=== PATIENT | female | born 1995 | race Hispanic/Latino ===

== ENCOUNTER 2021-04-11 08:54 | Emergency (ER) | payer BC, MEDICAID, OTHER | END 2021-04-11 09:55 | disposition home or self-care (01) | LOC: ERS 08:54 | DX: L03.011 Cellulitis of right finger (principal); F17.210 Nicotine dependence, cigarettes, uncomplicated | CPT/HCPCS: 99283 ==

== ENCOUNTER 2021-04-12 01:04 | Inpatient (IN) | payer MEDICAID, OTHER ==
[2021-04-12] MEDS ORDERED: Vancomycin 1 GM/200 ML BAG ONE (01:38)
[2021-04-12 01:59] LABS: #Basophils 0.1 thou/uL (0.0-0.2); #Eosinphils 0.1 thou/uL (0.0-0.7); #Monocytes 0.5 thou/uL (0.11-0.59); #Neutrophils 16.5 thou/uL (1.40-6.50); %Basophils 0.3 % (0.0-1.0); %Eosinophils 0.4 % (0.0-10.0); %Lymphocytes 10.2 % (21.0-51.0); %Monocytes 2.8 % (0.0-10.0); %Neutrophils 86.3 % (42.0-75.0); Hemoglobin 12.7 g/dL (12.0-16.0); Mean Corpuscular HGB CONC 34.6 g/dL (32.0-36.0); Mean Corpuscular Hemoglobin 32.6 pg (27.0-31.0); Mean Corpuscular Volume 94.1 fL (78.0-98.0); Mean Platelet Volume 7.1 fL (7.4-10.4); Platelet Count 282 thou/uL (130-400); RBC Distribution Width 11.8 % (11.5-14.5); White Blood Cell (WBC) Count 19.1 thou/uL (4.8-10.8)
[2021-04-12 02:21] LABS: ALT (SGPT) 11 U/L (8-55); AST (SGOT) 16 U/L (5-34); Alkaline Phosphatase 78 U/L (40-110); Anion Gap 13 mmol/L (10-20); BUN (Urea Nitrogen) 9 mg/dL (7.0-18.7); Bilirubin, Total 0.3 mg/dL (0.2-1.2); Calc. Creatinine Clearance 0 mL/min (70-130); Calcium 9.1 mg/dL (7.8-10.44); Carbon Dioxide 21 mmol/L (22-29); Chloride 105 mmol/L (98-107); Globulin 3.1 g/dL (2.4-3.5); Glucose 92 mg/dL (70-105); Potassium 3.5 mmol/L (3.5-5.1); Protein, Total 7.1 g/dL (6.0-8.3); Sodium 135 mmol/L (136-145)
[2021-04-12] MEDS ORDERED: Morphine 4 MG/ML VIAL ONE (02:50)
[2021-04-12] MEDS ORDERED: Clindamycin/D5W 600 mg/50 ml Premix Bag ONE (02:51)
[2021-04-12 04:42] VITALS: BMI 28.3
[2021-04-12] MEDS ORDERED: Ondansetron ODT 4 MG TAB SL PRN (04:45)
[2021-04-12] MEDS ORDERED: Ondansetron PF 4 MG/2 ML Vial IVP PRN (04:45)
[2021-04-12] MEDS ORDERED: Acetaminophen 325 MG TAB PO PRN (04:45)
[2021-04-12] MEDS: Sodium Chloride 0.9% 1,000 ML IV SCH ×2 (05:08→12:48)
[2021-04-12] MEDS ORDERED: Morphine 4 MG/ML VIAL SLOW IVP SCH (05:15)
[2021-04-12 07:58] LABS: SARS-CoV-2 NAA Rapid Test Not Detected (NotDetected)
[2021-04-12] MEDS ORDERED: Piperacillin/Tazobactam 3.375 GM in Sodium Chloride 0.9% 100 ML IVPB SCH (08:00)
[2021-04-12] MEDS: Morphine 4 MG/ML VIAL SLOW IVP PRN ×4 (09:05→22:02)
[2021-04-12] MEDS: Enoxaparin Sodium 40 MG/0.4 ML SYRINGE SC SCH ×2 (09:05→10:23)
[2021-04-12] MEDS: Vancomycin HCl 1.5 GM in Sodium Chloride 0.9% 250 ML 300 ML IVPB SCH ×2 (10:21→18:41)
[2021-04-12] MEDS: Piperacillin/Tazobactam 3.375 GM in Sodium Chloride 0.9% 100 ML IVPB SCH ×2 (12:05→22:01)
[2021-04-12] MEDS ORDERED: Ketorolac Tromethamine 30 MG/ML VIAL ONE (13:03)
[2021-04-12] MEDS: Ketorolac Tromethamine 30 MG/ML VIAL IVP PRN (20:08)
[2021-04-13] MEDS: Vancomycin HCl 1.5 GM in Sodium Chloride 0.9% 250 ML 300 ML IVPB SCH ×3 (02:18→18:40)
[2021-04-13] MEDS: Morphine 4 MG/ML VIAL SLOW IVP PRN ×4 (02:20→20:56)
[2021-04-13] MEDS: Piperacillin/Tazobactam 3.375 GM in Sodium Chloride 0.9% 100 ML IVPB SCH ×3 (04:59→20:59)
[2021-04-13 06:58] LABS: #Eosinphils 0.2 thou/uL (0.0-0.7); #Lymphocytes 2.7 thou/uL (1.20-3.40); #Monocytes 0.4 thou/uL (0.11-0.59); #Neutrophils 8.3 thou/uL (1.40-6.50); %Basophils 0.4 % (0.0-1.0); %Eosinophils 1.8 % (0.0-10.0); %Lymphocytes 23.3 % (21.0-51.0); %Monocytes 3.6 % (0.0-10.0); %Neutrophils 70.8 % (42.0-75.0); Hemoglobin 11.3 g/dL (12.0-16.0); Mean Corpuscular HGB CONC 33.2 g/dL (32.0-36.0); Mean Corpuscular Hemoglobin 31.2 pg (27.0-31.0); Mean Platelet Volume 7.8 fL (7.4-10.4); Platelet Count 277 thou/uL (130-400); RBC Distribution Width 11.8 % (11.5-14.5); Red Blood Cell (RBC) Count 3.62 mill/uL (4.20-5.40); White Blood Cell (WBC) Count 11.7 thou/uL (4.8-10.8)
[2021-04-13 07:14] LABS: Anion Gap 11 mmol/L (10-20); BUN (Urea Nitrogen) 5 mg/dL (7.0-18.7); Calc. Creatinine Clearance 148 mL/min (70-130); Calcium 8.4 mg/dL (7.8-10.44); Carbon Dioxide 22 mmol/L (22-29); Chloride 105 mmol/L (98-107); Glucose 97 mg/dL (70-105); Potassium 4.1 mmol/L (3.5-5.1); Sodium 134 mmol/L (136-145)
[2021-04-13] MEDS ORDERED: Ondansetron ODT 4 MG TAB SL PRN (07:40)
[2021-04-13] MEDS ORDERED: Loperamide HCl 2 MG CAP PO PRN (07:40)
[2021-04-13] MEDS ORDERED: GUAIFENESIN SF SOLN 200 MG/10 ML UDCUP PO PRN (07:40)
[2021-04-13] MEDS ORDERED: HYDROcodone/Acetaminophen 5/325 mg Tablet PO PRN (07:40)
[2021-04-13] MEDS ORDERED: Loratadine 10 MG TAB PO PRN (07:40)
[2021-04-13] MEDS ORDERED: hydrALAZINE 20 MG/ML VIAL SLOW IVP PRN (07:40)
[2021-04-13] MEDS ORDERED: Senokot S 8.6-50 MG TAB PO PRN (07:40)
[2021-04-13] MEDS ORDERED: Cepastat Lozenges 1 LOZ PO PRN (07:40)
[2021-04-13] MEDS ORDERED: Calcium Carbonate 500 MG ChewTAB PO PRN (07:40)
[2021-04-13 09:53] LABS: Vancomycin, Trough 16.7 ug/mL
[2021-04-13] MEDS: Ketorolac Tromethamine 30 MG/ML VIAL IVP PRN ×2 (10:23→20:18)
[2021-04-13] MEDS ORDERED: Betamet Acet/Betamet Na Ph 30 MG/5 ML VIAL ONE (15:31)
[2021-04-13] MEDS ORDERED: Neomycin-Polymyxin 1 ML AMP ONE ×3 (15:31→16:47)
[2021-04-13] MEDS ORDERED: Bacitracin Zinc Ointment 30 gm TUBE ONE (15:31)
[2021-04-13] MEDS ORDERED: Bupivacaine PF 0.5% 30 ML VIAL ONE (15:31)
[2021-04-13] MEDS ORDERED: Fentanyl 100 MCG/2 ML VIAL ONE ×2 (15:46→18:09)
[2021-04-13] MEDS ORDERED: Lidocaine 1% PF 5 ML VIAL ONE (15:54)
[2021-04-13] MEDS ORDERED: Dexamethasone 20 MG/5 ML VIAL ONE (15:54)
[2021-04-13] MEDS ORDERED: Ketorolac Tromethamine 30 MG/ML VIAL ONE (15:54)
[2021-04-13] MEDS ORDERED: Ondansetron PF 4 MG/2 ML Vial ONE (15:54)
[2021-04-13] MEDS ORDERED: PROPOFOL 200 MG/20 ML VIAL ONE (15:54)
[2021-04-13] MEDS ORDERED: PHENYLEPHRINE-NS 100 MCG/ML 10 ML SYRINGE ONE (15:54)
[2021-04-13] MEDS ORDERED: Midazolam HCl 2 mg/2 ml Vial ONE (15:57)
[2021-04-13] MEDS ORDERED: Promethazine HCl 25 MG/ML VIAL IM PRN (17:32)
[2021-04-13] MEDS ORDERED: Meperidine HCl/PF 25 MG/ML VIAL SLOW IVP PRN (17:32)
[2021-04-13] MEDS ORDERED: Promethazine HCl 25 MG/ML VIAL IVPB PRN (17:32)
[2021-04-13] MEDS ORDERED: HYDROmorphone 2 MG/ML VIAL SLOW IVP PRN (17:32)
[2021-04-13] MEDS: HYDROcodone/Acetaminophen 7.5/325 mg Tablet PO PRN (20:19)
[2021-04-13] MEDS ORDERED: traMADol HCl 50 MG TAB PO SCH (23:15)
[2021-04-14] MEDS: Vancomycin HCl 1.5 GM in Sodium Chloride 0.9% 250 ML 300 ML IVPB SCH ×3 (02:36→17:44)
[2021-04-14] MEDS: HYDROcodone/Acetaminophen 7.5/325 mg Tablet PO PRN ×3 (02:36→21:07)
[2021-04-14] MEDS: Morphine 4 MG/ML VIAL SLOW IVP PRN ×3 (03:37→23:21)
[2021-04-14] MEDS: Piperacillin/Tazobactam 3.375 GM in Sodium Chloride 0.9% 100 ML IVPB SCH ×4 (05:08→23:19)
[2021-04-14 09:36] LABS: #Basophils 0.1 thou/uL (0.0-0.2); #Lymphocytes 1.3 thou/uL (1.20-3.40); #Monocytes 0.5 thou/uL (0.11-0.59); #Neutrophils 12.6 thou/uL (1.40-6.50); %Basophils 0.4 % (0.0-1.0); %Lymphocytes 8.9 % (21.0-51.0); %Monocytes 3.5 % (0.0-10.0); %Neutrophils 87.2 % (42.0-75.0); Hemoglobin 11.5 g/dL (12.0-16.0); Mean Corpuscular HGB CONC 33.1 g/dL (32.0-36.0); Mean Corpuscular Volume 93.7 fL (78.0-98.0); Mean Platelet Volume 7.5 fL (7.4-10.4); Platelet Count 301 thou/uL (130-400); RBC Distribution Width 11.6 % (11.5-14.5); White Blood Cell (WBC) Count 14.4 thou/uL (4.8-10.8)
[2021-04-14 09:57] LABS: Anion Gap 12 mmol/L (10-20); BUN (Urea Nitrogen) 10 mg/dL (7.0-18.7); CRP (Inflammatory) 8.81 mg/dL (= or < 0.5); Calc. Creatinine Clearance 85 mL/min (70-130); Calcium 8.8 mg/dL (7.8-10.44); Carbon Dioxide 24 mmol/L (22-29); Chloride 107 mmol/L (98-107); Glucose 126 mg/dL (70-105); Potassium 4.1 mmol/L (3.5-5.1); Sodium 139 mmol/L (136-145)
[2021-04-14] MEDS: Meperidine HCl/PF 25 MG/ML VIAL IM PRN (19:29)
[2021-04-14] MEDS ORDERED: Vancomycin 1.5 GM in Premix Bag 1 BAG IVPB SCH (21:00)
[2021-04-14] MEDS: Ketorolac Tromethamine 30 MG/ML VIAL IVP PRN (21:07)
[2021-04-14] MEDS ORDERED: Piperacillin/Tazobactam 3.375 GM VIAL ONE (22:46)
[2021-04-15] MEDS: Ondansetron PF 4 MG/2 ML Vial IVP PRN (01:16)
[2021-04-15] MEDS: Meperidine HCl/PF 25 MG/ML VIAL IM PRN (01:22)
[2021-04-15] MEDS: Vancomycin HCl 1.5 GM in Sodium Chloride 0.9% 250 ML 300 ML IVPB SCH ×2 (05:34→18:26)
[2021-04-15 06:08] LABS: #Eosinphils 0.1 thou/uL (0.0-0.7); #Lymphocytes 3.7 thou/uL (1.20-3.40); #Monocytes 0.7 thou/uL (0.11-0.59); #Neutrophils 8.8 thou/uL (1.40-6.50); %Basophils 0.3 % (0.0-1.0); %Eosinophils 0.6 % (0.0-10.0); %Lymphocytes 27.9 % (21.0-51.0); %Monocytes 5.6 % (0.0-10.0); %Neutrophils 65.6 % (42.0-75.0); Hemoglobin 10.4 g/dL (12.0-16.0); Mean Corpuscular HGB CONC 32.7 g/dL (32.0-36.0); Mean Corpuscular Hemoglobin 30.9 pg (27.0-31.0); Mean Corpuscular Volume 94.6 fL (78.0-98.0); Mean Platelet Volume 7.6 fL (7.4-10.4); Platelet Count 281 thou/uL (130-400); RBC Distribution Width 11.8 % (11.5-14.5); Red Blood Cell (RBC) Count 3.37 mill/uL (4.20-5.40); White Blood Cell (WBC) Count 13.3 thou/uL (4.8-10.8)
[2021-04-15] MEDS ORDERED: Piperacillin/Tazobactam 3.375 GM in Sodium Chloride 0.9% 100 ML IVPB SCH (08:00)
[2021-04-15] MEDS ORDERED: Meropenem 1 GM in Sodium Chloride 0.9% 100 ML IVPB SCH ×3 (09:00→18:00)
[2021-04-15] MEDS: Enoxaparin Sodium 40 MG/0.4 ML SYRINGE SC SCH (09:12)
[2021-04-15] MEDS: Morphine 4 MG/ML VIAL SLOW IVP PRN ×3 (11:37→20:26)
[2021-04-15 12:04] LABS: Pregnancy Test - Urine (BHCG) Negative (Negative); Pregu Control Background? CLEAR/WHITE (CLR/WHITE); Pregu Control Bar Appear? YES (CONTROL BAR); Specific Gravity 1.012 (1.002-1.036)
[2021-04-15] MEDS: Sodium Chloride 0.9% 1,000 ML IV SCH ×2 (13:45→20:28)
[2021-04-15] MEDS: Ketorolac Tromethamine 30 MG/ML VIAL IVP PRN (15:17)
[2021-04-15] MEDS ORDERED: Neomycin-Polymyxin 1 ML AMP ONE ×2 (15:21→16:39)
[2021-04-15] MEDS ORDERED: Bupivacaine PF 0.5% 30 ML VIAL ONE (15:21)
[2021-04-15] MEDS ORDERED: Thrombin 5000 UNITS/5 ML VIAL ONE (15:21)
[2021-04-15] MEDS ORDERED: Bacitracin Zinc Ointment 30 gm TUBE ONE (15:21)
[2021-04-15] MEDS ORDERED: Midazolam HCl 2 mg/2 ml Vial ONE (16:58)
[2021-04-15] MEDS ORDERED: Fentanyl 100 MCG/2 ML VIAL ONE (16:58)
[2021-04-15] MEDS ORDERED: Tobramycin Sulfate 1.2 GM VIAL ONE (17:43)
[2021-04-15] MEDS ORDERED: PROPOFOL 200 MG/20 ML VIAL ONE (17:54)
[2021-04-15] MEDS ORDERED: Dexamethasone 20 MG/5 ML VIAL ONE (17:54)
[2021-04-15] MEDS ORDERED: Ondansetron PF 4 MG/2 ML Vial ONE (17:54)
[2021-04-15] MEDS ORDERED: Lidocaine 1% PF 5 ML VIAL ONE (17:54)
[2021-04-15] MEDS ORDERED: Promethazine HCl 25 MG/ML VIAL IM PRN (20:20)
[2021-04-15] MEDS: Meropenem 1 GM in Sodium Chloride 0.9% 100 ML IVPB SCH (22:32)
[2021-04-15] MEDS: HYDROcodone/Acetaminophen 7.5/325 mg Tablet PO PRN (22:37)
[2021-04-16] MEDS: Ketorolac Tromethamine 30 MG/ML VIAL IVP PRN (00:47)
[2021-04-16] MEDS: Morphine 4 MG/ML VIAL SLOW IVP PRN ×5 (01:49→23:55)
[2021-04-16] MEDS: HYDROcodone/Acetaminophen 7.5/325 mg Tablet PO PRN ×3 (06:23→22:20)
[2021-04-16 06:25] LABS: Vancomycin, Trough 28.7 ug/mL
[2021-04-16 06:27] LABS: #Lymphocytes 1.1 thou/uL (1.20-3.40); #Monocytes 0.3 thou/uL (0.11-0.59); #Neutrophils 5.5 thou/uL (1.40-6.50); %Basophils 0.2 % (0.0-1.0); %Eosinophils 0.1 % (0.0-10.0); %Monocytes 3.9 % (0.0-10.0); %Neutrophils 79.9 % (42.0-75.0); Hemoglobin 10.3 g/dL (12.0-16.0); Mean Corpuscular HGB CONC 33.5 g/dL (32.0-36.0); Mean Corpuscular Hemoglobin 31.6 pg (27.0-31.0); Mean Corpuscular Volume 94.4 fL (78.0-98.0); Platelet Count 265 thou/uL (130-400); RBC Distribution Width 11.8 % (11.5-14.5); Red Blood Cell (RBC) Count 3.26 mill/uL (4.20-5.40); White Blood Cell (WBC) Count 6.8 thou/uL (4.8-10.8)
[2021-04-16] MEDS: Meropenem 1 GM in Sodium Chloride 0.9% 100 ML IVPB SCH ×2 (06:36→20:22)
[2021-04-16 06:39] LABS: Anion Gap 12 mmol/L (10-20); BUN (Urea Nitrogen) 18 mg/dL (7.0-18.7); Calc. Creatinine Clearance 50 mL/min (70-130); Calcium 8.5 mg/dL (7.8-10.44); Carbon Dioxide 22 mmol/L (22-29); Chloride 106 mmol/L (98-107); Glucose 111 mg/dL (70-105); Potassium 4.3 mmol/L (3.5-5.1); Sodium 136 mmol/L (136-145)
[2021-04-16] MEDS: Vancomycin HCl 1.5 GM in Sodium Chloride 0.9% 250 ML 300 ML IVPB SCH (06:39)
[2021-04-16] MEDS: Enoxaparin Sodium 40 MG/0.4 ML SYRINGE SC SCH (09:54)
[2021-04-16] MEDS: Sodium Chloride 0.9% 1,000 ML IV SCH ×2 (11:00→20:22)
[2021-04-16] MEDS ORDERED: Meropenem 1 GM in Sodium Chloride 0.9% 100 ML IVPB SCH (18:00)
[2021-04-16] MEDS: Vancomycin 1 GM in Premix Bag 1 BAG IVPB SCH (18:06)
[2021-04-17] MEDS: Sodium Chloride 0.9% 1,000 ML IV SCH ×2 (02:56→16:07)
[2021-04-17] MEDS: Vancomycin 1 GM in Premix Bag 1 BAG IVPB SCH (05:29)
[2021-04-17] MEDS: Meropenem 1 GM in Sodium Chloride 0.9% 100 ML IVPB SCH (05:29)
[2021-04-17 07:18] LABS: #Basophils 0.1 thou/uL (0.0-0.2); #Eosinphils 0.1 thou/uL (0.0-0.7); #Lymphocytes 3.5 thou/uL (1.20-3.40); #Monocytes 0.8 thou/uL (0.11-0.59); #Neutrophils 7.5 thou/uL (1.40-6.50); %Basophils 0.6 % (0.0-1.0); %Eosinophils 1.1 % (0.0-10.0); %Lymphocytes 29.1 % (21.0-51.0); %Monocytes 6.3 % (0.0-10.0); %Neutrophils 62.8 % (42.0-75.0); Hemoglobin 10.1 g/dL (12.0-16.0); Mean Corpuscular HGB CONC 33.6 g/dL (32.0-36.0); Mean Corpuscular Hemoglobin 31.7 pg (27.0-31.0); Mean Corpuscular Volume 94.3 fL (78.0-98.0); Mean Platelet Volume 7.7 fL (7.4-10.4); Platelet Count 284 thou/uL (130-400); RBC Distribution Width 11.7 % (11.5-14.5); Red Blood Cell (RBC) Count 3.19 mill/uL (4.20-5.40)
[2021-04-17 07:43] LABS: Anion Gap 11 mmol/L (10-20); BUN (Urea Nitrogen) 24 mg/dL (7.0-18.7); Calc. Creatinine Clearance 30 mL/min (70-130); Calcium 8.1 mg/dL (7.8-10.44); Carbon Dioxide 22 mmol/L (22-29); Chloride 109 mmol/L (98-107); Glucose 103 mg/dL (70-105); Potassium 3.6 mmol/L (3.5-5.1); Sodium 138 mmol/L (136-145)
[2021-04-17] MEDS: Enoxaparin Sodium 40 MG/0.4 ML SYRINGE SC SCH (09:00)
[2021-04-17] MEDS: Morphine 4 MG/ML VIAL SLOW IVP PRN ×2 (09:45→18:03)
[2021-04-17] MEDS ORDERED: Morphine 4 MG/ML VIAL ONE (15:26)
[2021-04-17] MEDS ORDERED: Neomycin-Polymyxin 1 ML AMP ONE ×2 (16:00→16:04)
[2021-04-17] MEDS ORDERED: Bupivacaine PF 0.5% 30 ML VIAL ONE (16:00)
[2021-04-17] MEDS ORDERED: Bacitracin Zinc Ointment 30 gm TUBE ONE (16:04)
[2021-04-17] MEDS ORDERED: Fentanyl 100 MCG/2 ML VIAL ONE (16:07)
[2021-04-17] MEDS ORDERED: ceFAZolin 2 GM/Dextrose 50 ML IVPB ONE (16:10)
[2021-04-17] MEDS ORDERED: Ondansetron PF 4 MG/2 ML Vial ONE (16:15)
[2021-04-17] MEDS ORDERED: PROPOFOL 200 MG/20 ML VIAL ONE (16:15)
[2021-04-17] MEDS ORDERED: Dexamethasone 20 MG/5 ML VIAL ONE (16:15)
[2021-04-17] MEDS ORDERED: Lidocaine 1% PF 5 ML VIAL ONE (16:15)
[2021-04-17] MEDS: Meropenem 500 MG in Sodium Chloride 0.9% 100 ML IVPB SCH (18:03)
[2021-04-17 19:55] LABS: Albumin 3.1 g/dL (3.5-5.0); Anion Gap 12 mmol/L (10-20); BUN (Urea Nitrogen) 22 mg/dL (7.0-18.7); BUN/Creatinine Ratio 6.92; Calc. Creatinine Clearance 30 mL/min (70-130); Calcium 8.3 mg/dL (7.8-10.44); Carbon Dioxide 22 mmol/L (22-29); Chloride 110 mmol/L (98-107); Glucose 112 mg/dL (70-105); Phosphorus 3.2 mg/dL (2.3-4.7); Potassium 3.9 mmol/L (3.5-5.1); Sodium 140 mmol/L (136-145)
[2021-04-17] MEDS: HYDROcodone/Acetaminophen 7.5/325 mg Tablet PO PRN (20:13)
[2021-04-18 00:13] LABS: Bacteria/HPF None Seen HPF (None Seen); Bilirubin Negative (Negative); Blood, Urine Negative (Negative); Clarity Clear (Clear); Glucose, Urine (Dipstick) Normal (Negative); Ketone, Urine Negative (Negative); Leukocyte 25 Leu/uL (Negative); Nitrite Negative (Negative); Protein, Urine (Dipstick) Negative (Neg-Trace); RBC/HPF 0-3 HPF (0-3); Specific Gravity, Urine 1.006 (1.002-1.036); Squamous Epithelial 0-3 HPF (0-3); Urobilinogen Normal mg/dL (Less than 2); WBC/HPF 0-3 HPF (0-3)
[2021-04-18 00:18] LABS: Urine Culture Reflex Yes Yes
[2021-04-18 00:28] LABS: Protein, Urine Random Quant Less than 10 mg/dL (1-14); Sodium, Urine 77 mmol/L (Not Available)
[2021-04-18] MEDS: HYDROcodone/Acetaminophen 7.5/325 mg Tablet PO PRN ×5 (02:09→22:31)
[2021-04-18] MEDS: Sodium Chloride 0.9% 1,000 ML IV SCH (02:11)
[2021-04-18 05:17] LABS: #Lymphocytes 1.2 thou/uL (1.20-3.40); #Monocytes 0.5 thou/uL (0.11-0.59); #Neutrophils 9.7 thou/uL (1.40-6.50); %Basophils 0.2 % (0.0-1.0); %Eosinophils 0.1 % (0.0-10.0); %Lymphocytes 10.1 % (21.0-51.0); %Monocytes 4.5 % (0.0-10.0); %Neutrophils 85.1 % (42.0-75.0); Hemoglobin 10.3 g/dL (12.0-16.0); Mean Corpuscular HGB CONC 33.2 g/dL (32.0-36.0); Mean Corpuscular Hemoglobin 31.2 pg (27.0-31.0); Mean Corpuscular Volume 93.9 fL (78.0-98.0); Mean Platelet Volume 7.8 fL (7.4-10.4); Platelet Count 297 thou/uL (130-400); RBC Distribution Width 11.8 % (11.5-14.5); Red Blood Cell (RBC) Count 3.29 mill/uL (4.20-5.40); White Blood Cell (WBC) Count 11.4 thou/uL (4.8-10.8)
[2021-04-18 05:37] LABS: Anion Gap 12 mmol/L (10-20); BUN (Urea Nitrogen) 24 mg/dL (7.0-18.7); Calc. Creatinine Clearance 29 mL/min (70-130); Carbon Dioxide 21 mmol/L (22-29); Chloride 109 mmol/L (98-107); Glucose 113 mg/dL (70-105); Potassium 4.6 mmol/L (3.5-5.1); Sodium 137 mmol/L (136-145)
[2021-04-18 05:43] LABS: Vancomycin, Random 31.3 ug/mL (See Comment)
[2021-04-18] MEDS: Meropenem 500 MG in Sodium Chloride 0.9% 100 ML IVPB SCH (05:53)
[2021-04-18] MEDS ORDERED: Vancomycin 1 GM in Premix Bag 1 BAG IVPB SCH (06:00)
[2021-04-18] MEDS: Enoxaparin Sodium 30 MG/0.3 ML SYRINGE SC SCH (08:02)
[2021-04-18] MEDS: Morphine 4 MG/ML VIAL SLOW IVP PRN ×2 (08:03→14:08)
[2021-04-18] MEDS: Sodium Bicarbonate 75 MEQ in Sodium Chloride 0.45% 1,000 ML IV SCH (10:48)
[2021-04-18] MEDS: cefTRIAXone\\ROCEPHIN 2 GM in Sodium Chloride 0.9% 100 ML IVPB SCH (15:29)
[2021-04-18] MEDS: Meperidine HCl/PF 25 MG/ML VIAL SLOW IVP PRN ×3 (16:05→21:05)
[2021-04-19] MEDS: Meperidine HCl/PF 25 MG/ML VIAL SLOW IVP PRN (04:39)
[2021-04-19 05:18] LABS: #Basophils 0.1 thou/uL (0.0-0.2); #Eosinphils 0.4 thou/uL (0.0-0.7); #Lymphocytes 3.6 thou/uL (1.20-3.40); #Monocytes 0.9 thou/uL (0.11-0.59); #Neutrophils 8.9 thou/uL (1.40-6.50); %Basophils 0.6 % (0.0-1.0); %Eosinophils 2.9 % (0.0-10.0); %Lymphocytes 25.8 % (21.0-51.0); %Monocytes 6.2 % (0.0-10.0); %Neutrophils 64.5 % (42.0-75.0); Hemoglobin 9.8 g/dL (12.0-16.0); Mean Corpuscular HGB CONC 33.7 g/dL (32.0-36.0); Mean Corpuscular Hemoglobin 31.4 pg (27.0-31.0); Mean Corpuscular Volume 93.2 fL (78.0-98.0); Mean Platelet Volume 7.8 fL (7.4-10.4); Platelet Count 333 thou/uL (130-400); RBC Distribution Width 11.9 % (11.5-14.5); White Blood Cell (WBC) Count 13.8 thou/uL (4.8-10.8)
[2021-04-19 05:42] LABS: Anion Gap 10 mmol/L (10-20); BUN (Urea Nitrogen) 26 mg/dL (7.0-18.7); Calc. Creatinine Clearance 29 mL/min (70-130); Carbon Dioxide 27 mmol/L (22-29); Chloride 107 mmol/L (98-107); Glucose 92 mg/dL (70-105); Potassium 3.7 mmol/L (3.5-5.1); Sodium 140 mmol/L (136-145)
[2021-04-19] MEDS: Enoxaparin Sodium 30 MG/0.3 ML SYRINGE SC SCH (09:07)
[2021-04-19] MEDS: HYDROcodone/Acetaminophen 7.5/325 mg Tablet PO PRN (09:08)
[2021-04-19] MEDS: Morphine 4 MG/ML VIAL SLOW IVP PRN ×3 (09:10→21:43)
[2021-04-19] MEDS: Sodium Bicarbonate 75 MEQ in Sodium Chloride 0.45% 1,000 ML IV SCH ×2 (10:58→21:34)
[2021-04-19] MEDS: cefTRIAXone\\ROCEPHIN 2 GM in Sodium Chloride 0.9% 100 ML IVPB SCH (13:55)
[2021-04-19] MEDS: Ondansetron PF 4 MG/2 ML Vial IVP PRN (15:49)
[2021-04-19] MEDS: HYDROcodone/Acetaminophen 10/325 mg Tablet PO PRN (17:29)
[2021-04-19] MEDS: Zolpidem Tartrate 5 MG TAB PO PRN (21:44)
[2021-04-20] MEDS: Morphine 4 MG/ML VIAL SLOW IVP PRN ×3 (05:10→19:48)
[2021-04-20 06:32] LABS: #Eosinphils 0.4 thou/uL (0.0-0.7); #Lymphocytes 2.3 thou/uL (1.20-3.40); #Monocytes 0.7 thou/uL (0.11-0.59); #Neutrophils 9.8 thou/uL (1.40-6.50); %Basophils 0.3 % (0.0-1.0); %Eosinophils 2.7 % (0.0-10.0); %Lymphocytes 17.3 % (21.0-51.0); %Monocytes 5.3 % (0.0-10.0); %Neutrophils 74.4 % (42.0-75.0); Hemoglobin 9.3 g/dL (12.0-16.0); Mean Corpuscular HGB CONC 33.5 g/dL (32.0-36.0); Mean Corpuscular Hemoglobin 31.3 pg (27.0-31.0); Mean Corpuscular Volume 93.4 fL (78.0-98.0); Mean Platelet Volume 7.8 fL (7.4-10.4); Platelet Count 315 thou/uL (130-400); RBC Distribution Width 11.9 % (11.5-14.5); Red Blood Cell (RBC) Count 2.97 mill/uL (4.20-5.40); White Blood Cell (WBC) Count 13.2 thou/uL (4.8-10.8)
[2021-04-20 06:52] LABS: Anion Gap 11 mmol/L (10-20); BUN (Urea Nitrogen) 23 mg/dL (7.0-18.7); Calc. Creatinine Clearance 32 mL/min (70-130); Calcium 7.9 mg/dL (7.8-10.44); Carbon Dioxide 29 mmol/L (22-29); Chloride 101 mmol/L (98-107); Glucose 98 mg/dL (70-105); Potassium 3.8 mmol/L (3.5-5.1); Sodium 137 mmol/L (136-145)
[2021-04-20] MEDS: Sodium Bicarbonate 75 MEQ in Sodium Chloride 0.45% 1,000 ML IV SCH (08:02)
[2021-04-20] MEDS: Ondansetron PF 4 MG/2 ML Vial IVP PRN (09:14)
[2021-04-20] MEDS: Enoxaparin Sodium 30 MG/0.3 ML SYRINGE SC SCH (09:14)
[2021-04-20] MEDS: HYDROcodone/Acetaminophen 10/325 mg Tablet PO PRN ×3 (09:32→22:57)
[2021-04-20] MEDS: Meperidine HCl/PF 25 MG/ML VIAL SLOW IVP PRN (12:08)
[2021-04-20] MEDS ORDERED: Polyethylene Glycol 3350 17 GM Packet PO SCH (13:15)
[2021-04-20] MEDS: cefTRIAXone\\ROCEPHIN 2 GM in Sodium Chloride 0.9% 100 ML IVPB SCH (13:53)
[2021-04-20] MEDS: Zolpidem Tartrate 5 MG TAB PO PRN (22:58)
[2021-04-21] MEDS: HYDROcodone/Acetaminophen 10/325 mg Tablet PO PRN ×3 (05:49→19:49)
[2021-04-21 09:32] LABS: Anion Gap 14 mmol/L (10-20); BUN (Urea Nitrogen) 22 mg/dL (7.0-18.7); Calc. Creatinine Clearance 34 mL/min (70-130); Calcium 8.5 mg/dL (7.8-10.44); Carbon Dioxide 25 mmol/L (22-29); Chloride 102 mmol/L (98-107); Glucose 89 mg/dL (70-105); Potassium 4.1 mmol/L (3.5-5.1); Sodium 137 mmol/L (136-145)
[2021-04-21] MEDS: Morphine 4 MG/ML VIAL SLOW IVP PRN ×2 (09:37→16:26)
[2021-04-21] MEDS: Enoxaparin Sodium 30 MG/0.3 ML SYRINGE SC SCH (09:38)
[2021-04-21 11:51] LABS: SARS-CoV-2 PCR by NAA Not Detected (NotDetected)
[2021-04-21] MEDS: cefTRIAXone\\ROCEPHIN 2 GM in Sodium Chloride 0.9% 100 ML IVPB SCH ×2 (13:36→16:24)
[2021-04-21 15:35] VITALS: TEMP 98.6
[2021-04-21 16:15] LABS: Fungus Stain Final report (.)
[2021-04-21 16:15] LABS: Fungus Stain Final report (.)
[2021-04-21 19:56] VITALS: BP 153/88
== END 2021-04-21 20:16 | disposition home or self-care (01) | DRG 854 ==
LOC: ERS 01:04 → SURG A 03:16
PROVIDERS: ADMIT Student in an Organized Health Care Education/Training Program; ATTEND Internal Medicine
PROC: 0LB80ZZ Excision of Left Hand Tendon, Open Approach (ICD-10-PCS; principal; 2021-04-13)
PROC: 01N50ZZ Release Median Nerve, Open Approach (ICD-10-PCS; 2021-04-13)
PROC: 01Q50ZZ Repair Median Nerve, Open Approach (ICD-10-PCS; 2021-04-13)
PROC: 0JDJ0ZZ Extraction of Right Hand Subcutaneous Tissue and Fascia, Open Approach (ICD-10-PCS; 2021-04-13)
PROC: 0JBJ0ZZ Excision of Right Hand Subcutaneous Tissue and Fascia, Open Approach (ICD-10-PCS; 2021-04-15)
PROC: 0LB70ZZ Excision of Right Hand Tendon, Open Approach (ICD-10-PCS; 2021-04-15)
DX: A40.8 Other streptococcal sepsis (principal); L03.113 Cellulitis of right upper limb; L02.512 Cutaneous abscess of left hand; N17.9 Acute kidney failure, unspecified; I96 Gangrene, not elsewhere classified; E87.2 Acidosis; L02.511 Cutaneous abscess of right hand; Z20.822 Contact with and (suspected) exposure to COVID-19; M65.141 Other infective (teno)synovitis, right hand; F17.210 Nicotine dependence, cigarettes, uncomplicated; B95.4 Other streptococcus as the cause of diseases classified elsewhere; K59.00 Constipation, unspecified; T36.8X5A Adverse effect of other systemic antibiotics, initial encounter; T39.395A Adverse effect of other nonsteroidal anti-inflammatory drugs [NSAID], initial encounter; Z90.710 Acquired absence of both cervix and uterus
CPT/HCPCS: 36415; 80048; 80053; 80202; 81001; 81025; 82550; 82570; 84156; 84300; 85025; 85652; 86140; 87070; 87077; 87086; 87102; 87205; 87206; 88304; 96365; 96375; J0690; J0696; J0702; J1100; J1650; J1885; J2175; J2185; J2250; J2270; J2405; J2543; J2550; J2704; J3010; J3260; J3370; J3490; J7050; Q0162; S0020; U0002; U0003; U0005